=== PATIENT | male | born 1985 | race Hispanic/Latino ===

== ENCOUNTER 2024-03-15 20:42 | Day surgery (SDC) | payer OTHER ==
[2024-03-16 03:52] VITALS: BMI 27.6
[2024-03-16] MEDS ORDERED: EPINEPHrine 4 MG in Dextrose 5% in Water 250 ML IVP SCH (04:00)
[2024-03-16] MEDS ORDERED: Piperacillin/Tazobactam 3.375 GM in Sodium Chloride 0.9% 100 ML IVPB SCH (04:15)
[2024-03-16] MEDS ORDERED: Hydrocortisone Sod Succ/PF 300 MG in Sodium Chloride 0.9% 250 ML 250 ML IVPB SCH (04:15)
[2024-03-16] MEDS: Sodium Bicarbonate 150 MEQ in Dextrose 5% in Water 1,000 ML IV SCH (04:34)
[2024-03-16] MEDS: Albumin 5% 12.5 GM (250 mL) BOT IVPB SCH (04:34)
[2024-03-16] MEDS: Piperacillin/Tazobactam 3.375 GM in Sodium Chloride 0.9% 100 ML IVPB SCH (05:37)
[2024-03-16] MEDS: Hydrocortisone Sod Succ/PF 100 mg/2 ml Vial IVP SCH ×2 (05:37→15:20)
[2024-03-16] MEDS: NOREPINEPHRINE 8 MG/250 ML-D5W 250 ML IVPB SCH (05:37)
[2024-03-16] MEDS ORDERED: Levothyroxine Sodium 400 MCG in Sodium Chloride 0.9% 100 ML IVPB SCH (05:45)
[2024-03-16 06:34] LABS: Actual Bicarbonate (HCO3a) 28.7 mEq/L (22-28); CO2 Tension 37.9 mmHg (35.0-45.0); Calcium, Ionized (arterial) 1.11 mmol/L (1.12-1.30); Carboxyhemoglobin (COHb) 0.1 gm% (0.0-3.0); Hematocrit-ABG 17 % (42.0-52.0); Potassium - ABG Lab 4.09 mmol/L (3.70-5.30); pH, Arterial 7.497 (7.35-7.45)
[2024-03-16] MEDS: Ipratropium/Albuterol 3 ML NEB NEB SCH (06:44)
[2024-03-16] MEDS: Vasopressin 20 UNITS, Admixture Fee 1 EACH in Sodium Chloride 0.9% 50 ML IV SCH (07:37)
[2024-03-16 07:59] LABS: ALV-art Gradient -52.875 mmHg (0-20); Hemoglobin (Hb) 5.7 g/dL (14.0-18.0); Puncture Site Arterial Line
[2024-03-16 09:24] LABS: Globulin 0.9 g/dL (2.4-3.5)
[2024-03-16 09:29] LABS: ALT (SGPT) 21 U/L (8-55); AST (SGOT) 66 U/L (5-34); Albumin 2.8 g/dL (3.5-5.0); Alkaline Phosphatase 25 U/L (40-110); Anion Gap 13 mmol/L (10-20); BUN (Urea Nitrogen) 20 mg/dL (8.9-20.6); Bilirubin, Direct 0.3 mg/dL (0.1-0.3); Bilirubin, Total 0.6 mg/dL (0.2-1.2); Calc. Creatinine Clearance 76 mL/min (70-130); Calcium 8.1 mg/dL (7.8-10.44); Carbon Dioxide 28 mmol/L (22-29); Chloride 103 mmol/L (98-107); Estimated GFR 57; Glucose 189 mg/dL (70-105); Magnesium 1.6 mg/dL (1.6-2.6); Phosphorus 3.8 mg/dL (2.3-4.7); Protein, Total 3.7 g/dL (6.0-8.3); Sodium 140 mmol/L (136-145)
[2024-03-16 09:31] LABS: INR-International Normal Ratio 1.4; Prothrombin Time 17.6 sec (12.0-14.7)
[2024-03-16 09:32] LABS: PTT 37.5 sec (22.9-36.1)
[2024-03-16] MEDS: Phenylephrine 40 MG/NS 250 ML 40 MG in Premix 1 BAG IVPB SCH (09:46)
[2024-03-16 09:56] LABS: Band 19 % (5-11); Lymphocytes 9 % (21-51); Monocytes 5 % (0-10); Neutrophil 67 % (42-75); Platelet Adequacy Comment Significant Decrease; Polychromasia SLIGHT = 2-3 cells HPF (0-2)
[2024-03-16 10:00] LABS: Fibrinogen 200 mg/dL (253-463); Hematocrit 16.3 % (42.0-52.0); Mean Corpuscular HGB CONC 36.8 g/dL (32.0-36.0); Mean Corpuscular Hemoglobin 31.3 pg (27.0-31.0); Mean Corpuscular Volume 84.9 fL (78.0-98.0); Mean Platelet Volume 12.5 fL (7.4-10.4); Platelet Count 39 10x3/uL (130-400); RBC Distribution Width 12.9 % (11.5-14.5); Red Blood Cell (RBC) Count 1.92 mill/uL (4.70-6.10)
[2024-03-16 10:01] LABS: INR-International Normal Ratio 1.5; PTT 38.4 sec (22.9-36.1); Prothrombin Time 17.7 sec (12.0-14.7)
[2024-03-16] MEDS: Magnesium 2 GM/50 ML(in water) 2 GM in Premix 1 BAG IVPB SCH (10:04)
[2024-03-16 10:09] LABS: D-Dimer Test 16.44 mcg/mL (0.27-0.43)
[2024-03-16 10:31] LABS: Platelet Count 39 10x3/uL (130-400)
[2024-03-16 10:38] LABS: Lactic Acid 4.1 mmol/L (0.5-2.2)
[2024-03-16 12:30] LABS: Bacteria/HPF None Seen HPF (None Seen); Bilirubin Negative (Negative); Blood, Urine Trace (Negative); CAUTI Indications for Culture Spinal Cord Injury; Clarity Clear (Clear); Glucose, Urine (Dipstick) Normal (Negative); Ketone, Urine Negative (Negative); Leukocyte Negative Leu/uL (Negative); Nitrite Negative (Negative); Protein, Urine (Dipstick) 30 mg/dL (Neg-Trace); RBC/HPF 0-3 HPF (0-3); Specific Gravity, Urine 1.023 (1.002-1.036); Squamous Epithelial 0-3 HPF (0-3); Urobilinogen Normal mg/dL (Less than 2)
[2024-03-16 12:40] LABS: Urine Culture Reflex No No
[2024-03-16 13:57] LABS: Hemoglobin 7.1 g/dL (14.0-18.0); Platelet Count 39 10x3/uL (130-400)
[2024-03-16 15:02] LABS: Actual Bicarbonate (HCO3a) 25.5 mEq/L (22-28); Base Excess (BEa) 4.4 mEq/L (-2.0 to +3.0); Calcium, Ionized (arterial) 1.05 mmol/L (1.12-1.30); Carboxyhemoglobin (COHb) 0.7 gm% (0.0-3.0); Hematocrit-ABG 21 % (42.0-52.0); Hemoglobin (Hb) 7.2 g/dL (14.0-18.0); O2 Tension (PaO2), arterial 350.2 mmHg (80.0-100.0); Potassium - ABG Lab 2.85 mmol/L (3.70-5.30)
[2024-03-16 15:06] LABS: CO2 Tension 24.9 mmHg (35.0-45.0); Puncture Site Arterial Line; pH, Arterial 7.629 (7.35-7.45)
[2024-03-16 15:07] LABS: ALV-art Gradient 331.675 mmHg (0-20)
[2024-03-16 17:07] LABS: Actual Bicarbonate (HCO3a) 25.8 mEq/L (22-28); CO2 Tension 31.6 mmHg (35.0-45.0); Calcium, Ionized (arterial) 1.09 mmol/L (1.12-1.30); Hematocrit-ABG 21 % (42.0-52.0); Hemoglobin (Hb) 7.3 g/dL (14.0-18.0); O2 Tension (PaO2), arterial 318.4 mmHg (80.0-100.0); Potassium - ABG Lab 3.22 mmol/L (3.70-5.30); pH, Arterial 7.529 (7.35-7.45)
[2024-03-16 17:09] LABS: Puncture Site Arterial Line
[2024-03-16 18:25] LABS: Lactic Acid 3.4 mmol/L (0.5-2.2)
[2024-03-16 18:26] LABS: Globulin 1.1 g/dL (2.4-3.5)
[2024-03-16 18:28] LABS: Phosphorus 4.3 mg/dL (2.3-4.7)
[2024-03-16 18:32] LABS: ALT (SGPT) 28 U/L (8-55); AST (SGOT) 93 U/L (5-34); Albumin 2.7 g/dL (3.5-5.0); Alkaline Phosphatase 33 U/L (40-110); Anion Gap 13 mmol/L (10-20); BUN (Urea Nitrogen) 21 mg/dL (8.9-20.6); Bilirubin, Total 0.9 mg/dL (0.2-1.2); Calc. Creatinine Clearance 91 mL/min (70-130); Carbon Dioxide 28 mmol/L (22-29); Chloride 104 mmol/L (98-107); Estimated GFR 71; Glucose 141 mg/dL (70-105); Magnesium 2.1 mg/dL (1.6-2.6); Potassium 3.3 mmol/L (3.5-5.1); Protein, Total 3.8 g/dL (6.0-8.3); Sodium 142 mmol/L (136-145)
[2024-03-16 18:40] LABS: Hematocrit 19.3 % (42.0-52.0); Hemoglobin 7.1 g/dL (14.0-18.0); Mean Corpuscular HGB CONC 36.8 g/dL (32.0-36.0); Mean Corpuscular Hemoglobin 30.7 pg (27.0-31.0); Mean Corpuscular Volume 83.5 fL (78.0-98.0); Platelet Count 37 10x3/uL (130-400); Platelet Count 44 10x3/uL (130-400); RBC Distribution Width 13.3 % (11.5-14.5); Red Blood Cell (RBC) Count 2.31 mill/uL (4.70-6.10)
[2024-03-16 18:49] LABS: Fibrinogen 363 mg/dL (253-463)
[2024-03-16 18:50] LABS: INR-International Normal Ratio 1.4; PTT 31.1 sec (22.9-36.1); Prothrombin Time 17.1 sec (12.0-14.7)
[2024-03-16] MEDS: Albumin 25% 25 GM (100 mL) BOT IVPB SCH ×2 (18:51→23:10)
[2024-03-16 19:28] LABS: Band 15 % (5-11); Lymphocytes 7 % (21-51); Monocytes 2 % (0-10); Neutrophil 76 % (42-75); Platelet Adequacy Comment Platelets Decreased; Polychromasia SLIGHT = 2-3 cells HPF (0-2)
[2024-03-16] MEDS: Potassium Chloride 40 MEQ in Premix 1 BAG IVPB SCH (19:43)
[2024-03-16 20:51] LABS: Actual Bicarbonate (HCO3a) 28.9 mEq/L (22-28); Base Excess (BEa) 4.1 mEq/L (-2.0 to +3.0); CO2 Tension 45.1 mmHg (35.0-45.0); Calcium, Ionized (arterial) 1.11 mmol/L (1.12-1.30); Carboxyhemoglobin (COHb) 2.1 gm% (0.0-3.0); Hematocrit-ABG 18 % (42.0-52.0); Hemoglobin (Hb) 6.2 g/dL (14.0-18.0); O2 Tension (PaO2), arterial 427.2 mmHg (80.0-100.0); Potassium - ABG Lab 3.56 mmol/L (3.70-5.30); pH, Arterial 7.425 (7.35-7.45)
[2024-03-16 21:50] LABS: Bacteria/HPF None Seen HPF (None Seen); Bilirubin Negative (Negative); Blood, Urine 3+ (Negative); CAUTI Indications for Culture Spinal Cord Injury; Clarity Clear (Clear); Glucose, Urine (Dipstick) Normal (Negative); Ketone, Urine Negative (Negative); Leukocyte Negative Leu/uL (Negative); Nitrite Negative (Negative); Protein, Urine (Dipstick) Negative (Neg-Trace); RBC/HPF 0-3 HPF (0-3); Specific Gravity, Urine 1.005 (1.002-1.036); Squamous Epithelial None Seen HPF (0-3); Urobilinogen Normal mg/dL (Less than 2); WBC/HPF 0-3 HPF (0-3); pH, Urine 5.5 (5.0-9.0)
[2024-03-16 21:52] LABS: Urine Culture Reflex No No
[2024-03-16 22:45] LABS: D-Dimer Test 15.53 mcg/mL (0.19-0.50)
[2024-03-16] MEDS: Metolazone 5 MG TAB PO SCH (23:10)
[2024-03-17] MEDS: Albumin 25% 25 GM (100 mL) BOT IVPB SCH (00:21)
[2024-03-17 05:34] LABS: Actual Bicarbonate (HCO3a) 29.5 mEq/L (22-28); CO2 Tension 43.7 mmHg (35.0-45.0); Calcium, Ionized (arterial) 1.16 mmol/L (1.12-1.30); Carboxyhemoglobin (COHb) 1.5 gm% (0.0-3.0); Hematocrit-ABG 16 % (42.0-52.0); O2 Tension (PaO2), arterial 445.9 mmHg (80.0-100.0); Potassium - ABG Lab 3.47 mmol/L (3.70-5.30); pH, Arterial 7.447 (7.35-7.45)
[2024-03-17 06:56] LABS: #Basophils Less than 0.03 10x3/uL (0.0-0.2); #Eosinphils Less than 0.03 10x3/uL (0.0-0.7); %Basophils 0.1 % (0.0-1.0); %Lymphocytes 6.8 % (21.0-51.0); %Monocytes 7.9 % (0.0-10.0); %Neutrophils 84.4 % (42.0-75.0); Hematocrit 14.4 % (42.0-52.0); Hemoglobin 5.1 g/dL (14.0-18.0); Mean Corpuscular HGB CONC 35.4 g/dL (32.0-36.0); Mean Corpuscular Hemoglobin 30.7 pg (27.0-31.0); Mean Corpuscular Volume 86.7 fL (78.0-98.0); Mean Platelet Volume 12.4 fL (7.4-10.4); Platelet Count 37 10x3/uL (130-400); RBC Distribution Width 14.4 % (11.5-14.5); Red Blood Cell (RBC) Count 1.66 mill/uL (4.70-6.10)
[2024-03-17 07:05] LABS: INR-International Normal Ratio 1.3; PTT 38.4 sec (22.9-36.1); Prothrombin Time 16.6 sec (12.0-14.7)
[2024-03-17 07:37] LABS: Globulin 1.3 g/dL (2.4-3.5)
[2024-03-17 07:44] LABS: Albumin 3.6 g/dL (3.5-5.0); Anion Gap 14 mmol/L (10-20); BUN (Urea Nitrogen) 17 mg/dL (8.9-20.6); Calc. Creatinine Clearance 124 mL/min (70-130); Carbon Dioxide 28 mmol/L (22-29); Chloride 111 mmol/L (98-107); Estimated GFR 104; Potassium 3.4 mmol/L (3.5-5.1); Protein, Total 4.9 g/dL (6.0-8.3); Sodium 150 mmol/L (136-145)
[2024-03-17 07:58] LABS: ALT (SGPT) 41 U/L (8-55); AST (SGOT) 141 U/L (5-34); Alkaline Phosphatase 33 U/L (40-110); Bilirubin, Direct 0.3 mg/dL (0.1-0.3); Bilirubin, Total 0.7 mg/dL (0.2-1.2); Calcium 8.9 mg/dL (7.8-10.44); Glucose 198 mg/dL (70-105); Magnesium 2.5 mg/dL (1.6-2.6); Phosphorus 3.1 mg/dL (2.3-4.7)
[2024-03-17] MEDS: Insulin Regular 300 UNITS/3 ML VIAL SC SCH (08:30)
[2024-03-17 09:42] LABS: Bacteria/HPF None Seen HPF (None Seen); Bilirubin Negative (Negative); Blood, Urine 3+ (Negative); CAUTI Indications for Culture Spinal Cord Injury; Clarity Clear (Clear); Glucose, Urine (Dipstick) 500 mg/dL (Negative); Ketone, Urine Negative (Negative); Leukocyte Negative Leu/uL (Negative); Nitrite Negative (Negative); Protein, Urine (Dipstick) 10 mg/dL (Neg-Trace); RBC/HPF 0-3 HPF (0-3); Specific Gravity, Urine 1.017 (1.002-1.036); Squamous Epithelial None Seen HPF (0-3); Urobilinogen Normal mg/dL (Less than 2); WBC/HPF 0-3 HPF (0-3)
[2024-03-17 09:44] LABS: Urine Culture Reflex No No
[2024-03-17] MEDS: Potassium Chloride 40 MEQ in Premix 1 BAG IVPB SCH (10:05)
[2024-03-17] MEDS ORDERED: Iopamidol-370 76% 500 ML MDV (1 ML CHARGE) ONE (11:14)
[2024-03-17 11:16] VITALS: BP 107/59
[2024-03-17] MEDS: HumaLOG 300 UNITS/3 ML VIAL SC SCH (12:25)
[2024-03-17 12:45] LABS: Hematocrit 18.8 % (42.0-52.0); Hemoglobin 6.4 g/dL (14.0-18.0); Platelet Count 38 10x3/uL (130-400)
[2024-03-17 15:16] LABS: Actual Bicarbonate (HCO3a) 30.5 mEq/L (22-28); Base Excess (BEa) 5.7 mEq/L (-2.0 to +3.0); CO2 Tension 46.1 mmHg (35.0-45.0); Calcium, Ionized (arterial) 1.22 mmol/L (1.12-1.30); Carboxyhemoglobin (COHb) 0.1 gm% (0.0-3.0); Hematocrit-ABG 21 % (42.0-52.0); Hemoglobin (Hb) 7.3 g/dL (14.0-18.0); O2 Tension (PaO2), arterial 414.2 mmHg (80.0-100.0); Potassium - ABG Lab 3.42 mmol/L (3.70-5.30); pH, Arterial 7.438 (7.35-7.45)
[2024-03-17 15:18] LABS: ALV-art Gradient 241.175 mmHg (0-20); Puncture Site Arterial Line
[2024-03-17 19:15] LABS: #Basophils Less than 0.03 10x3/uL (0.0-0.2); #Eosinphils Less than 0.03 10x3/uL (0.0-0.7); %Basophils 0.1 % (0.0-1.0); %Lymphocytes 6.5 % (21.0-51.0); %Monocytes 6.3 % (0.0-10.0); %Neutrophils 86.2 % (42.0-75.0); Hematocrit 18.7 % (42.0-52.0); Hemoglobin 6.5 g/dL (14.0-18.0); Mean Corpuscular HGB CONC 34.8 g/dL (32.0-36.0); Mean Corpuscular Hemoglobin 30.4 pg (27.0-31.0); Mean Corpuscular Volume 87.4 fL (78.0-98.0); Platelet Count 43 10x3/uL (130-400); RBC Distribution Width 15.5 % (11.5-14.5); Red Blood Cell (RBC) Count 2.14 mill/uL (4.70-6.10)
[2024-03-17 19:18] LABS: INR-International Normal Ratio 1.2; Prothrombin Time 15.1 sec (12.0-14.7)
[2024-03-17 19:19] LABS: PTT 36.7 sec (22.9-36.1)
[2024-03-17 20:57] LABS: Actual Bicarbonate (HCO3a) 28.9 mEq/L (22-28); Base Excess (BEa) 4.4 mEq/L (-2.0 to +3.0); CO2 Tension 42.9 mmHg (35.0-45.0); Calcium, Ionized (arterial) 1.18 mmol/L (1.12-1.30); Carboxyhemoglobin (COHb) 0.5 gm% (0.0-3.0); Hematocrit-ABG 19 % (42.0-52.0); Hemoglobin (Hb) 6.6 g/dL (14.0-18.0); O2 Tension (PaO2), arterial 383.7 mmHg (80.0-100.0); Potassium - ABG Lab 3.35 mmol/L (3.70-5.30); pH, Arterial 7.446 (7.35-7.45)
[2024-03-17 20:58] LABS: Puncture Site Arterial Line
[2024-03-17 20:59] LABS: ALV-art Gradient 275.675 mmHg (0-20)
[2024-03-17 21:00] LABS: Globulin 1.7 g/dL (2.4-3.5)
[2024-03-17 21:02] LABS: ALT (SGPT) 44 U/L (8-55); AST (SGOT) 143 U/L (5-34); Albumin 3.3 g/dL (3.5-5.0); Alkaline Phosphatase 38 U/L (40-110); Anion Gap 15 mmol/L (10-20); BUN (Urea Nitrogen) 16 mg/dL (8.9-20.6); Bilirubin, Direct 0.3 mg/dL (0.1-0.3); Bilirubin, Total 0.6 mg/dL (0.2-1.2); Calc. Creatinine Clearance 144 mL/min (70-130); Carbon Dioxide 26 mmol/L (22-29); Chloride 112 mmol/L (98-107); Estimated GFR 114; Glucose 178 mg/dL (70-105); Magnesium 2.6 mg/dL (1.6-2.6); Phosphorus 2.5 mg/dL (2.3-4.7); Potassium 3.3 mmol/L (3.5-5.1); Sodium 150 mmol/L (136-145)
[2024-03-17 21:16] LABS: Bacteria/HPF None Seen HPF (None Seen); Bilirubin Negative (Negative); Blood, Urine 3+ (Negative); CAUTI Indications for Culture Spinal Cord Injury; Clarity Clear (Clear); Glucose, Urine (Dipstick) 300 mg/dL (Negative); Ketone, Urine Trace mg/dL (Negative); Leukocyte Negative Leu/uL (Negative); Nitrite Negative (Negative); Protein, Urine (Dipstick) 20 mg/dL (Neg-Trace); RBC/HPF 0-3 HPF (0-3); Squamous Epithelial None Seen HPF (0-3); Urobilinogen Normal mg/dL (Less than 2); WBC/HPF None Seen HPF (0-3); pH, Urine 6.5 (5.0-9.0)
[2024-03-17 21:17] LABS: Urine Culture Reflex No No
[2024-03-18 00:39] LABS: Troponin I 1.813 ng/mL (< 0.028)
[2024-03-18 03:20] LABS: Actual Bicarbonate (HCO3a) 30.8 mEq/L (22-28); Base Excess (BEa) 6.4 mEq/L (-2.0 to +3.0); CO2 Tension 43.9 mmHg (35.0-45.0); Carboxyhemoglobin (COHb) 0.1 gm% (0.0-3.0); Hematocrit-ABG 21 % (42.0-52.0); O2 Tension (PaO2), arterial 442.1 mmHg (80.0-100.0); Potassium - ABG Lab 3.47 mmol/L (3.70-5.30); pH, Arterial 7.464 (7.35-7.45)
[2024-03-18 03:24] LABS: ALV-art Gradient 216.025 mmHg (0-20); Puncture Site Arterial Line
[2024-03-18] MEDS: Albumin 25% 25 GM (100 mL) BOT IVPB SCH (03:25)
[2024-03-18] MEDS: Potassium Chloride 40 MEQ in Premix 1 BAG IVPB SCH (03:26)
[2024-03-18 05:57] LABS: #Basophils Less than 0.03 10x3/uL (0.0-0.2); #Eosinphils Less than 0.03 10x3/uL (0.0-0.7); %Basophils 0.1 % (0.0-1.0); %Lymphocytes 9.1 % (21.0-51.0); %Monocytes 7.6 % (0.0-10.0); %Neutrophils 82.4 % (42.0-75.0); Hematocrit 18.3 % (42.0-52.0); Hemoglobin 6.2 g/dL (14.0-18.0); Mean Corpuscular HGB CONC 33.9 g/dL (32.0-36.0); Mean Corpuscular Hemoglobin 30.1 pg (27.0-31.0); Mean Corpuscular Volume 88.8 fL (78.0-98.0); Mean Platelet Volume 11.8 fL (7.4-10.4); Platelet Count 54 10x3/uL (130-400); Red Blood Cell (RBC) Count 2.06 mill/uL (4.70-6.10)
[2024-03-18 06:06] LABS: INR-International Normal Ratio 1.2; PTT 35.9 sec (22.9-36.1); Prothrombin Time 15.6 sec (12.0-14.7)
[2024-03-18 07:02] LABS: ALT (SGPT) 41 U/L (8-55); AST (SGOT) 118 U/L (5-34); Albumin 3.3 g/dL (3.5-5.0); Alkaline Phosphatase 40 U/L (40-110); Anion Gap 12 mmol/L (10-20); BUN (Urea Nitrogen) 19 mg/dL (8.9-20.6); Bilirubin, Direct 0.2 mg/dL (0.1-0.3); Bilirubin, Total 0.4 mg/dL (0.2-1.2); Calc. Creatinine Clearance 144 mL/min (70-130); Carbon Dioxide 29 mmol/L (22-29); Chloride 113 mmol/L (98-107); Estimated GFR 114; Glucose 191 mg/dL (70-105); Magnesium 2.9 mg/dL (1.6-2.6); Phosphorus 2.7 mg/dL (2.3-4.7); Potassium 3.9 mmol/L (3.5-5.1); Protein, Total 5.3 g/dL (6.0-8.3); Sodium 150 mmol/L (136-145)
[2024-03-18 07:06] LABS: Critical Call Chem Troponin I RESULT DECREASING; Troponin I 1.672 ng/mL (< 0.028)
[2024-03-18 07:16] LABS: CK (CPK) 4312 U/L (30-200)
[2024-03-18 07:34] LABS: Actual Bicarbonate (HCO3a) 26.8 mEq/L (22-28); Base Excess (BEa) 3.2 mEq/L (-2.0 to +3.0); CO2 Tension 36.6 mmHg (35.0-45.0); Carboxyhemoglobin (COHb) 0.2 gm% (0.0-3.0); Hematocrit-ABG 20 % (42.0-52.0); Hemoglobin (Hb) 6.9 g/dL (14.0-18.0); O2 Tension (PaO2), arterial 334.5 mmHg (80.0-100.0); Potassium - ABG Lab 3.52 mmol/L (3.70-5.30); pH, Arterial 7.483 (7.35-7.45)
[2024-03-18 07:36] LABS: Puncture Site Arterial Line
[2024-03-18] MEDS ORDERED: Nitroglycerin 50 MG/250 ML BOT 0 ML ONE (09:41)
[2024-03-18 10:45] LABS: Bilirubin Negative (Negative); Blood, Urine 3+ (Negative); CAUTI Indications for Culture Spinal Cord Injury; Clarity Clear (Clear); Glucose, Urine (Dipstick) Greater than 1000 mg/dL (Negative); Ketone, Urine Negative (Negative); Leukocyte Negative Leu/uL (Negative); Nitrite Negative (Negative); Protein, Urine (Dipstick) 30 mg/dL (Neg-Trace); RBC/HPF 0-3 HPF (0-3); Squamous Epithelial None Seen HPF (0-3); Urobilinogen Normal mg/dL (Less than 2); WBC/HPF 0-3 HPF (0-3); pH, Urine 6.5 (5.0-9.0)
[2024-03-18 10:46] LABS: Bacteria/HPF None Seen HPF (None Seen)
[2024-03-18 10:47] LABS: Urine Culture Reflex No No
[2024-03-18 12:51] LABS: Actual Bicarbonate (HCO3a) 28.8 mEq/L (22-28); Base Excess (BEa) 4.6 mEq/L (-2.0 to +3.0); CO2 Tension 41.2 mmHg (35.0-45.0); Calcium, Ionized (arterial) 1.21 mmol/L (1.12-1.30); Carboxyhemoglobin (COHb) 0.3 gm% (0.0-3.0); Hematocrit-ABG 21 % (42.0-52.0); Hemoglobin (Hb) 7.1 g/dL (14.0-18.0); O2 Tension (PaO2), arterial 73.6 mmHg (80.0-100.0); Potassium - ABG Lab 3.27 mmol/L (3.70-5.30); pH, Arterial 7.462 (7.35-7.45)
[2024-03-18 12:52] LABS: Puncture Site Arterial Line
[2024-03-18 19:20] LABS: INR-International Normal Ratio 1.2; PTT 33.7 sec (22.9-36.1); Prothrombin Time 15.4 sec (12.0-14.7)
[2024-03-18 19:24] LABS: Critical Call Chem Troponin I TRENDING DOWN; Troponin I 1.173 ng/mL (< 0.028)
[2024-03-18 19:41] LABS: Globulin 2.4 g/dL (2.4-3.5)
[2024-03-18 19:50] LABS: ALT (SGPT) 41 U/L (8-55); AST (SGOT) 108 U/L (5-34); Albumin 3.1 g/dL (3.5-5.0); Alkaline Phosphatase 46 U/L (40-110); Anion Gap 11 mmol/L (10-20); BUN (Urea Nitrogen) 22 mg/dL (8.9-20.6); Bilirubin, Direct 0.2 mg/dL (0.1-0.3); Bilirubin, Total 0.4 mg/dL (0.2-1.2); CK (CPK) 3805 U/L (30-200); Calc. Creatinine Clearance 157 mL/min (70-130); Calcium 9.2 mg/dL (7.8-10.44); Carbon Dioxide 29 mmol/L (22-29); Chloride 115 mmol/L (98-107); Estimated GFR 117; Glucose 157 mg/dL (70-105); Magnesium 2.9 mg/dL (1.6-2.6); Phosphorus 3.3 mg/dL (2.3-4.7); Potassium 3.5 mmol/L (3.5-5.1); Protein, Total 5.5 g/dL (6.0-8.3); Sodium 151 mmol/L (136-145)
[2024-03-18 20:00] LABS: Hematocrit 19.6 % (42.0-52.0); Hemoglobin 6.4 g/dL (14.0-18.0); Mean Corpuscular HGB CONC 32.7 g/dL (32.0-36.0); Mean Corpuscular Hemoglobin 29.5 pg (27.0-31.0); Mean Corpuscular Volume 90.3 fL (78.0-98.0); Mean Platelet Volume 11.2 fL (7.4-10.4); Platelet Count 81 10x3/uL (130-400); RBC Distribution Width 16.1 % (11.5-14.5); Red Blood Cell (RBC) Count 2.17 mill/uL (4.70-6.10)
[2024-03-18 20:27] LABS: Bilirubin Negative (Negative); Blood, Urine Large (Negative); Glucose, Urine (Dipstick) 100 mg/dL (Negative); Ketone, Urine Negative (Negative); Leukocyte Negative (Negative); Nitrite Negative (Negative); Protein, Urine (Dipstick) 30 mg/dL (Neg-Trace); pH, Urine 6.5 (5.0-9.0)
[2024-03-18 20:30] LABS: Clarity Slightly Cloudy (Clear)
[2024-03-18 20:38] LABS: Bacteria/HPF None Seen HPF (None Seen); CAUTI Indications for Culture Spinal Cord Injury; RBC/HPF None Seen HPF (0-3); Squamous Epithelial None Seen HPF (0-3); WBC/HPF 0-3 HPF (0-3)
[2024-03-18 20:40] LABS: Urine Culture Reflex No No
[2024-03-18 21:05] LABS: Band 16 % (5-11); Large Platelets 3.9 % (0-5); Lymphocytes 7 % (21-51); Monocytes 2 % (0-10); Neutrophil 76 % (42-75); Nucleated RBC (Manual Ct) 1 % (0); Platelet Adequacy Comment Platelets Decreased; RBC Morphology Within Normal Limits; Smudge Cells 11.8 %
[2024-03-19 01:21] LABS: Actual Bicarbonate (HCO3a) 30.8 mEq/L (22-28); Base Excess (BEa) 5.8 mEq/L (-2.0 to +3.0); CO2 Tension 48.1 mmHg (35.0-45.0); Calcium, Ionized (arterial) 1.23 mmol/L (1.12-1.30); Carboxyhemoglobin (COHb) 0.1 gm% (0.0-3.0); Hematocrit-ABG 22 % (42.0-52.0); Hemoglobin (Hb) 7.4 g/dL (14.0-18.0); O2 Tension (PaO2), arterial 335.2 mmHg (80.0-100.0); Potassium - ABG Lab 3.67 mmol/L (3.70-5.30); Puncture Site Arterial Line; pH, Arterial 7.424 (7.35-7.45)
[2024-03-19 01:22] LABS: ALV-art Gradient 317.675 mmHg (0-20)
[2024-03-19 06:30] LABS: Hematocrit 18.9 % (42.0-52.0); Hemoglobin 6.3 g/dL (14.0-18.0); Mean Corpuscular HGB CONC 33.3 g/dL (32.0-36.0); Mean Corpuscular Hemoglobin 30.9 pg (27.0-31.0); Mean Corpuscular Volume 92.6 fL (78.0-98.0); Mean Platelet Volume 11.3 fL (7.4-10.4); Platelet Count 89 10x3/uL (130-400); RBC Distribution Width 16.2 % (11.5-14.5); Red Blood Cell (RBC) Count 2.04 mill/uL (4.70-6.10)
[2024-03-19 06:34] LABS: INR-International Normal Ratio 1.3; PTT 34.8 sec (22.9-36.1)
[2024-03-19 06:39] LABS: Bacteria/HPF None Seen HPF (None Seen); Bilirubin Negative (Negative); Blood, Urine 3+ (Negative); CAUTI Indications for Culture Spinal Cord Injury; Clarity Clear (Clear); Globulin 2.8 g/dL (2.4-3.5); Glucose, Urine (Dipstick) 150 mg/dL (Negative); Ketone, Urine Negative (Negative); Leukocyte Negative Leu/uL (Negative); Nitrite Negative (Negative); Protein, Urine (Dipstick) 70 mg/dL (Neg-Trace); RBC/HPF 0-3 HPF (0-3); Specific Gravity, Urine 1.031 (1.002-1.036); Squamous Epithelial None Seen HPF (0-3); Urobilinogen Normal mg/dL (Less than 2); pH, Urine 6.5 (5.0-9.0)
[2024-03-19 06:41] LABS: Urine Culture Reflex No No
[2024-03-19 06:51] LABS: Anisocytosis SLIGHT = 6-15 cells HPF (0-5); Band 13 % (5-11); Lymphocytes 9 % (21-51); Monocytes 4 % (0-10); Neutrophil 74 % (42-75); Platelet Adequacy Comment Platelets Decreased; Polychromasia SLIGHT = 2-3 cells HPF (0-2); Smudge Cells 11.9 %
[2024-03-19 07:41] LABS: ALT (SGPT) 40 U/L (8-55); AST (SGOT) 95 U/L (5-34); Albumin 2.8 g/dL (3.5-5.0); Alkaline Phosphatase 46 U/L (40-110); Anion Gap 11 mmol/L (10-20); BUN (Urea Nitrogen) 27 mg/dL (8.9-20.6); Bilirubin, Direct 0.2 mg/dL (0.1-0.3); Bilirubin, Total 0.4 mg/dL (0.2-1.2); Calc. Creatinine Clearance 166 mL/min (70-130); Calcium 9.4 mg/dL (7.8-10.44); Carbon Dioxide 30 mmol/L (22-29); Chloride 114 mmol/L (98-107); Estimated GFR 119; Glucose 148 mg/dL (70-105); Magnesium 3.1 mg/dL (1.6-2.6); Phosphorus 3.1 mg/dL (2.3-4.7); Potassium 3.6 mmol/L (3.5-5.1); Protein, Total 5.6 g/dL (6.0-8.3); Sodium 151 mmol/L (136-145)
[2024-03-19 08:40] LABS: Actual Bicarbonate (HCO3a) 29.4 mEq/L (22-28); Base Excess (BEa) 4.7 mEq/L (-2.0 to +3.0); Calcium, Ionized (arterial) 1.23 mmol/L (1.12-1.30); Carboxyhemoglobin (COHb) 0.3 gm% (0.0-3.0); Hematocrit-ABG 21 % (42.0-52.0); Hemoglobin (Hb) 7.3 g/dL (14.0-18.0); O2 Tension (PaO2), arterial 308.1 mmHg (80.0-100.0); Potassium - ABG Lab 3.71 mmol/L (3.70-5.30); pH, Arterial 7.433 (7.35-7.45)
[2024-03-19 08:42] LABS: Puncture Site Arterial Line
[2024-03-19 11:54] LABS: Critical Call Chem Troponin I TRENDING DOWN
[2024-03-19] MEDS: Albumin 25% 25 GM (100 mL) BOT IVPB SCH (12:53)
[2024-03-19] MEDS: Furosemide 40 MG (4 mL) VIAL SLOW IVP SCH (12:53)
[2024-03-19] MEDS: Vancomycin 1 GM in Premix 1 BAG IVPB SCH (12:53)
[2024-03-19 13:15] LABS: Hematocrit 20.1 % (42.0-52.0); Hemoglobin 6.5 g/dL (14.0-18.0); Mean Corpuscular HGB CONC 32.3 g/dL (32.0-36.0); Mean Corpuscular Hemoglobin 30.7 pg (27.0-31.0); Mean Corpuscular Volume 94.8 fL (78.0-98.0); Mean Platelet Volume 10.8 fL (7.4-10.4); Platelet Count 110 10x3/uL (130-400); RBC Distribution Width 16.3 % (11.5-14.5); Red Blood Cell (RBC) Count 2.12 mill/uL (4.70-6.10)
[2024-03-19 13:21] LABS: Globulin 3.1 g/dL (2.4-3.5)
[2024-03-19 13:27] LABS: INR-International Normal Ratio 1.3; PTT 35.9 sec (22.9-36.1); Prothrombin Time 16.2 sec (12.0-14.7)
[2024-03-19 13:33] LABS: ALT (SGPT) 40 U/L (8-55); AST (SGOT) 88 U/L (5-34); Albumin 2.8 g/dL (3.5-5.0); Alkaline Phosphatase 48 U/L (40-110); Anion Gap 12 mmol/L (10-20); BUN (Urea Nitrogen) 28 mg/dL (8.9-20.6); Bilirubin, Direct 0.2 mg/dL (0.1-0.3); Bilirubin, Total 0.4 mg/dL (0.2-1.2); Calc. Creatinine Clearance 160 mL/min (70-130); Calcium 9.6 mg/dL (7.8-10.44); Carbon Dioxide 28 mmol/L (22-29); Chloride 115 mmol/L (98-107); Estimated GFR 117; Glucose 155 mg/dL (70-105); Phosphorus 3.3 mg/dL (2.3-4.7); Potassium 3.7 mmol/L (3.5-5.1); Protein, Total 5.9 g/dL (6.0-8.3); Sodium 151 mmol/L (136-145)
[2024-03-19 13:40] LABS: Anisocytosis SLIGHT = 6-15 cells HPF (0-5); Band 14 % (5-11); Large Platelets 5.8 % (0-5); Lymphocytes 2 % (21-51); Monocytes 10 % (0-10); Myelocyte 1 % (0-0); Neutrophil 73 % (42-75); Nucleated RBC (Manual Ct) 1 % (0); Platelet Adequacy Comment Platelets Decreased; Polychromasia SLIGHT = 2-3 cells HPF (0-2)
[2024-03-19 14:18] LABS: Actual Bicarbonate (HCO3a) 31.4 mEq/L (22-28); Base Excess (BEa) 6.7 mEq/L (-2.0 to +3.0); CO2 Tension 46.6 mmHg (35.0-45.0); Calcium, Ionized (arterial) 1.21 mmol/L (1.12-1.30); Carboxyhemoglobin (COHb) 0.4 gm% (0.0-3.0); Hematocrit-ABG 21 % (42.0-52.0); Hemoglobin (Hb) 7.1 g/dL (14.0-18.0); O2 Tension (PaO2), arterial 280.8 mmHg (80.0-100.0); Potassium - ABG Lab 3.51 mmol/L (3.70-5.30); pH, Arterial 7.446 (7.35-7.45)
[2024-03-19 14:19] LABS: Puncture Site Arterial Line
[2024-03-19 15:08] LABS: Actual Bicarbonate (HCO3a) 31.8 mEq/L (22-28); Base Excess (BEa) 7.3 mEq/L (-2.0 to +3.0); Carboxyhemoglobin (COHb) 0.3 gm% (0.0-3.0); Hematocrit-ABG 20 % (42.0-52.0); Hemoglobin (Hb) 6.8 g/dL (14.0-18.0); Potassium - ABG Lab 3.54 mmol/L (3.70-5.30); pH, Arterial 7.458 (7.35-7.45)
[2024-03-19 15:11] LABS: Puncture Site Arterial Line
[2024-03-19 15:19] LABS: Bacteria/HPF None Seen HPF (None Seen); Bilirubin Negative (Negative); Blood, Urine 3+ (Negative); CAUTI Indications for Culture Spinal Cord Injury; Clarity Clear (Clear); Glucose, Urine (Dipstick) 100 mg/dL (Negative); Ketone, Urine Negative (Negative); Leukocyte Negative Leu/uL (Negative); Nitrite Negative (Negative); Protein, Urine (Dipstick) 100 mg/dL (Neg-Trace); RBC/HPF 0-3 HPF (0-3); Specific Gravity, Urine 1.034 (1.002-1.036); Squamous Epithelial 0-3 HPF (0-3); Urobilinogen Normal mg/dL (Less than 2)
[2024-03-19 15:20] LABS: Urine Culture Reflex No No
[2024-03-19] MEDS ORDERED: ePHEDrine 50 MG/ML VIAL ONE (15:49)
[2024-03-19] MEDS ORDERED: Vasopressin 20 UNITS/ML VIAL ONE (15:49)
[2024-03-19] MEDS ORDERED: Norepinephrine 4 MG/4 ML VIAL ONE (15:49)
[2024-03-19] MEDS ORDERED: Phenylephrine 10 MG/ML VIAL ONE (15:49)
[2024-03-19] MEDS ORDERED: Furosemide 20 MG (2 mL) VIAL ONE (15:49)
[2024-03-19] MEDS ORDERED: Vecuronium 10 MG VIAL ONE (15:49)
[2024-03-19] MEDS ORDERED: Albumin 5% 500 ML ONE (15:50)
[2024-03-19] MEDS ORDERED: Mannitol 12.5 GM/50 ML ONE (15:50)
[2024-03-19] MEDS ORDERED: Calcium Chloride 1 GM/10 ML Abboject SYRINGE ONE (20:06)
[2024-03-19] MEDS ORDERED: Potassium Chloride 20 MEQ (100 mL) BAG ONE (20:07)
[2024-03-21 10:36] LABS: Hemoglobin (Hb) 5.3 g/dL (14.0-18.0)
[2024-03-24 12:07] LABS: Actual Bicarbonate (HCO3a) 30.4 mEq/L (22-28); Analyzer IN Cardio OR; Base Excess (BEa) 6.6 mEq/L (-2.0 to +3.0); Calcium, Ionized (arterial) 1.18 mmol/L (1.12-1.30); Carboxyhemoglobin (COHb) 0.3 gm% (0.0-3.0); Hematocrit-ABG 24 % (42.0-52.0); Hemoglobin (Hb) 8.1 g/dL (14.0-18.0); O2 Tension (PaO2), arterial 370.5 mmHg (80.0-100.0); Potassium - ABG Lab 2.88 mmol/L (3.70-5.30); pH, Arterial 7.498 (7.35-7.45)
== END 2024-03-19 16:40 | disposition expired ==
LOC: SDC/OP 20:42 → CCU 03-16 03:00 → SDC/OP 03-19 16:40
PROC: B246ZZZ Ultrasonography of Right and Left Heart (ICD-10-PCS; principal; 2024-03-17)
PROC: 4A023N7 Measurement of Cardiac Sampling and Pressure, Left Heart, Percutaneous Approach (ICD-10-PCS; 2024-03-18)
DX: S01.93XA Puncture wound without foreign body of unspecified part of head, initial encounter (principal); W34.00XA Accidental discharge from unspecified firearms or gun, initial encounter
CPT/HCPCS: 36415; 36416; 36430; 71045; 71270; 74178; 80053; 81001; 82150; 82248; 82550; 82805; 83605; 83690; 83735; 84100; 84484; 85025; 85049; 85300; 85362; 85384; 85610; 85730; 86850; 86900; 86901; 87205; 93005; 93010; 93306; 93454; 94003; 94640; C1713; C1769; J0171; J1720; J1940; J2150; J2371; J2543; J3370-JW; J3475; J3480; J3490; J7070; J7620; P9016; P9045; P9047; Q9967